=== PATIENT | male | born 1975 | race Caucasian/White ===

== ENCOUNTER 2016-06-28 07:49 | Emergency (ER) | payer OTHER ==
[~2016-06-28] VITALS: Ht 167.6 cm; Wt 83.0 kg
--- NOTE | 2016-06-28 08:08 | NUR ---
Patient ambulated to bed 07.
[2016-06-28 08:11] VITALS: BP 107/66
--- NOTE | 2016-06-28 08:11 | NUR ---
Dr. Verdugo evaluating patient at bedside.
--- NOTE | 2016-06-28 08:22 | NUR ---
40/M c/o "spots on my head, neck, arms and back." C/o frontal head pressure 2/10, intermittent. Circular, quarter sized, purple discolorations noted to head, neck, arms and back. Pt states "They just started popping up." AOX4, ambulatory with steady gait. VSS.
[2016-06-28 09:30] VITALS: BP 110/60
--- NOTE | 2016-06-28 09:30 | NUR ---
Chart checked and completed. The patient's care was reviewed and supervised by Bret Posadas RN.
--- NOTE | 2016-06-28 09:30 | NUR ---
Patient discharged with v/s stable. Written and verbal after care instructions given and explained. Patient verbalized understanding. Ambulatory with steady gait. All questions addressed prior to discharge. Advised to follow up with PMD.
== END 2016-06-28 09:30 | disposition home or self-care (01) ==
LOC: MED 07:49
DX: R21 Rash and other nonspecific skin eruption (principal); R50.9 Fever, unspecified
CPT/HCPCS: 99283